=== PATIENT | female | born 1985 ===

== ENCOUNTER 2021-03-02 05:55 | Day surgery (SDC) | payer OTHER ==
[~2021-03-02 05:55] MED LIST: ALLERGY RELIEF10 M3 PO; CAMBIA50 MG PO; GABAPENT PO; ULTRAM50 MG PO; [UNRECOGNIZED DRUG - OTHER] PO
== END 2021-03-02 10:50 | disposition home or self-care (01) ==
LOC: CIR.AMB 05:55
PROVIDERS: ATTEND Orthopaedic Surgery Hand Surgery
DX: G56.02 Carpal tunnel syndrome, left upper limb (principal); Z20.822 Contact with and (suspected) exposure to COVID-19